=== PATIENT | male | born 1965 | race Caucasian/White ===

== ENCOUNTER 2024-05-08 16:33 | Emergency (ER) | payer OTHER, SELFPAY ==
[2024-05-08 16:40] VITALS: BP 133/80
[2024-05-08 17:04] LABS: % Basophils 0.4 % (0-2); % Eosinophils 1.2 % (0-6); % Immature Granulocytes 0.3 % (0-0.5); % Monocytes 7.6 % (1.7-9.3); % Neutrophils 68.5 % (42.2-75.2); Absolute Eosinophils 0.1 10^3/uL (0-0.7); Absolute Lymphocytes 1.7 10^3/uL (1.2-3.4); Absolute Monocytes 0.6 10^3/uL (0.1-0.6); Absolute Neutrophils 5.3 10^3/uL (1.4-6.5); Hematocrit 41.6 % (39.0-52.0); Hemoglobin 14.6 g/dL (13.0-18.0); Mean Corp Hgb Conc. 35.1 g/dL (33.0-37.0); Mean Corpuscular Hgb 32.1 pg (27.0-31.0); Mean Corpuscular Volume 91.4 fL (80.0-94.0); Mean Platelet Volume 9.8 fL (7.4-10.4); Nucleated Red Blood Cells % 0 % (-); Platelet Count 193 10^3/uL (130-400); Red Blood Cell Count 4.55 10^6/uL (4.70-6.10); Red Cell Dist. Width 13.4 % (11.5-14.5); White Blood Cell Count 7.7 10^3/uL (4.8-10.8)
[2024-05-08 17:22] LABS: ALT (SGPT) 24 U/L (0-50); AST (SGOT) 31 U/L (17-59); Albumin 4.8 g/dl (3.5-5.0); Alkaline Phosphatase 72 U/L (38-126); Blood Urea Nitrogen 11 mg/dl (9-20); Carbon Dioxide 26 mmol/L (22-30); Chloride 103 mmol/L (98-107); Glucose 114 mg/dl (70-99); Potassium 4.2 mmol/L (3.5-5.1); Sodium 140 mmol/L (135-145); Total Bilirubin 0.8 mg/dl (0.2-1.3); Total Protein 7.5 g/dl (6.3-8.2); eGFR > 60.00
[2024-05-08] MEDS: ANCEF 10 IV (19:56)
--- NOTE | 2024-05-08 20:00 | ED.GENMED ---
History of Present Illness
General
Chief Complaint: Skin Problem
Source: patient
Exam Limitations: none
Time Seen by Provider: 05/08/24 19:07
History of Present Illness
History of Present Illness:
This is a 58-year-old male who presents with redness of his right arm. The patient states that on Tuesday he was working with wood and slid his arm down and it punctured his right thenar eminence. He states that he did not think much of it but
yesterday he was profoundly red at the thenar eminence and into his wrist that started noticing streaking up his arm. He had pain up and towards his armpit. He thought about coming yesterday but decided to wait because he needed to do something
for his . He states he was squeezing it and today it is much improved there are still some redness streaking. He states the redness around the wound is much improved. He did not sustain a foreign body he states. Last tetanus was last year
Past History
Past History
ED Past Medical History: Hypercholesterolemia
ED Past Surgical History: Orthopedic
Phy Exam
Physical Exam
Physical Exam:
CONSTITUTIONAL Vital signs reviewed, Patient alert and oriented to person, place and time. Well-appearing
HEAD atraumatic, normocephalic.
EYES eyelids normal to inspection, Extraocular muscles intact, Conjunctiva normal, Sclera normal.
NECK normal range of motion, Trachea midline, no jugular venous distention.
RESP no respiratory distress
BACK No obvious deformities
UPPER EXTREMITY Gross Range of motion normal, gross motor strength normal. Puncture wound to the right thenar eminence with no surrounding induration or fluctuance. There is no noted foreign body. He has red streak going to his axilla. There is
no lymphadenopathy in the axilla. There is no tenderness. Normal distal cap refill
LOWER EXTREMITY Gross range of motion normal, Gross motor strength normal
NEURO Speech normal, No focal motor deficits include, [place] coma scale 15, Memory normal, Cranial Nerves intact to screening exam.
SKIN Skin warm, dry, and normal in color.
PSYCHIATRIC Patient oriented to person place and time, Normal affect.
Course
Orders/Labs/Results
Orders:
Orders
05/08/24 16:55
Complete Blood Count/With Diff Urgent
Comprehensive Metabolic Panel Urgent
05/08/24 19:40
CeFAZolin 2 GRAM [Ancef] 2 grams in 10 ml IV NOW
Abnormal Lab Results
05/08/24
16:55
RBC 4.55 L 10^6/uL
(4.70-6.10)
MCH 32.1 H pg
(27.0-31.0)
Creatinine 0.6 L mg/dL
(0.7-1.3)
Glucose 114 H mg/dl
(70-99)
05/08/24 16:55
05/08/24 16:55
Vital Signs
Initial and Last Documented VS:
Initial Vital Signs
Temp Pulse Resp BP Pulse Ox
98.9 F 57 20 133/80 97
05/08/24 16:40 05/08/24 16:40 05/08/24 16:40 05/08/24 16:40 05/08/24 16:40
Last Documented Vital Signs
Temp Pulse Resp BP Pulse Ox
98.9 F 57 20 133/80 97
05/08/24 16:40 05/08/24 16:40 05/08/24 16:40 05/08/24 16:40 05/08/24 16:40
MDM/Problems Addressed
MDM/Problems Addressed:
Cellulitis, puncture wound, lymphangitis
*Pulse Oximetry
Patient hypoxic: no
*Critical Care Note
Total Time (30-74mins, 75-104mins- exclusive of procedures): Not Applicable
Data Reviewed
Source: patient
Prescriptions/Medications Considered But Not Given:
Consider vancomycin but I do think that cefazolin and cephalexin reasonable
Patient Management
Escalation/DeEscalation of care consider admission/obs:
Patient states the area of redness is much improved. He does not want to stay for IV antibiotics I think this is reasonable. He does agree to return immediately for fevers or worsening redness. No concern for foreign body at this time.
ED Attending Note
-
Portions of this chart may have been created with voice recognition software.� Occasional wrong word or��sound alike� substitutions may have occurred due to the inherent limitations of voice recognition software.
Discharge Plan
Departure
Patient Disposition: Home (Routine Discharge)
Date of Disposition: 05/08/24
Time of Disposition: 20:00
Patient with high blood pressure during this ER visit?: No
Discharge Problem:
Lymphangitis, Cellulitis
Instructions: Cellulitis (Skin Infection), Adult (DC)
Prescriptions:
New
cephalexin 500 mg capsule
500 mg PO QID Qty: 28 0RF
Activity Restrictions/Additional Instructions:
Return immediately for fevers, worsening redness, pain, or any other concerns. Please see your doctor next 3 days for wound reassessment.
Interventions
Interventions:
*Risk Screen - Suicide Last Done: 05/08/24 16:40
*General Assessment Last Done: 05/08/24 16:40
*Neglect/Abuse Screening Last Done: 05/08/24 16:40
Discharge Date and Time
Print Language: TUNISIAN
[2024-05-08 20:27] VITALS: BP 145/87
== END 2024-05-08 20:34 | disposition home or self-care (01) ==
LOC: EMR 16:33
PROVIDERS: Emergency Medicine; EMERGENCY PHYSICIAN Emergency Medicine
DX: I89.1 Lymphangitis (principal); L03.113 Cellulitis of right upper limb; S61.031A Puncture wound without foreign body of right thumb without damage to nail, initial encounter; X58.XXXA Exposure to other specified factors, initial encounter; Y93.89 Activity, other specified; E78.00 Pure hypercholesterolemia, unspecified
CPT/HCPCS: 99284; 96374; 80053; 85025